=== PATIENT | male | born 1990 | race African-American/Black ===

== ENCOUNTER 2024-03-22 08:47 | Emergency (ER) | payer MEDICAID | END 2024-03-22 10:33 | disposition home or self-care (01) | LOC: MW.ED 08:47 | DX: J02.0 Streptococcal pharyngitis (principal); Z88.0 Allergy status to penicillin | CPT/HCPCS: 87651-QW; 99282; 99283 ==

== ENCOUNTER 2024-04-29 13:26 | Emergency (ER) | payer MEDICAID ==
[2024-04-29] MEDS: methylPREDNISolone Sodium Succinate 125 MG/2 ML SDV IVPUSH STA (14:23)
[2024-04-29] MEDS: Sodium Chloride 0.9% 10 ML Syringe FLUSH PRN (14:24)
[2024-04-29] MEDS: Sodium Chloride 0.9% 2.5 ML Syringe FLUSH PRN (14:24)
[2024-04-29] MEDS: Albuterol/Ipratropium 3.0-0.5 MG/3 ML Neb Soln NEB STA (14:28)
[2024-04-29] MEDS: Albuterol 0.083% 2.5 MG/3 ML Neb Soln NEB STA (14:37)
[2024-04-29 14:38] LABS: BASOPHILS ABSOLUTE AUTO 0.08 K/uL (0.00-0.20); BASOPHILS PERCENT AUTO 0.9 % (0.0-1.0); EOSINOPHILS ABSOLUTE AUTO 0.77 K/uL (0.00-0.45); EOSINOPHILS PERCENT AUTO 8.8 % (0.0-6.0); HEMATOCRIT 47.1 % (42.0-52.0); HEMOGLOBIN 15.6 g/dL (14.0-18.0); IMMATURE GRAN ABSOLUTE AUTO 0.03 K/uL (0.00-0.05); IMMATURE GRAN PERCENT AUTO 0.3 % (0.0-0.4); LYMPHOCYTES ABSOLUTE AUTO 3.26 K/uL (1.00-4.80); LYMPHOCYTES PERCENT AUTO 37.4 % (24.0-44.0); MEAN CORPUSCULAR HEMOGLOBIN 27.7 pg (28.0-32.0); MEAN CORPUSCULAR HGB CONC 33.1 g/dL (32.0-36.0); MEAN CORPUSCULAR VOLUME 83.5 fL (83.0-99.0); MEAN PLATELET VOLUME 8.4 fL (9.4-12.4); MONOCYTES ABSOLUTE AUTO 1.07 K/uL (0.00-0.80); MONOCYTES PERCENT AUTO 12.3 % (0.0-8.0); NEUTROPHILS PERCENT AUTO 40.3 % (41.0-71.0); PLATELET COUNT,PLT 307 K/uL (150-400); RED BLOOD CELL COUNT 5.64 M/uL (4.52-5.90); WHITE BLOOD CELL COUNT,WBC 8.71 K/uL (3.9-11.3)
[2024-04-29 15:17] LABS: ALBUMIN 3.4 g/dL (3.4-5.0); BILIRUBIN TOTAL 0.3 mg/dL (0.2-1.0); CALCIUM 8.8 mg/dL (8.5-10.1); CARBON DIOXIDE,CO2 28.5 mmol/L (21.0-32.0); EST CRCL DRUG DOSING (CG) 114.24 mL/min; POTASSIUM,K 4.1 mmol/L (3.5-5.1); PROTEIN TOTAL,TP 6.8 g/dL (6.4-8.2)
[2024-04-29 15:22] LABS: CORONAVIRUS COVID-19 NAA NEGATIVE (NEGATIVE); INFLUENZA A NAA NEGATIVE (NEGATIVE); INFLUENZA B NAA NEGATIVE (NEGATIVE); RESPIRATORY SYNCYTIAL VIR NAA NEGATIVE (NEGATIVE)
== END 2024-04-29 16:06 | disposition home or self-care (01) ==
LOC: MW.ED 13:26
DX: J40 Bronchitis, not specified as acute or chronic (principal); Z88.0 Allergy status to penicillin; Z79.899 Other long term (current) drug therapy; Z75.8 Other problems related to medical facilities and other health care
CPT/HCPCS: 0241U; 36415; 71045; 80053; 83690; 84484; 85025; 93005; 94640; 96374; 99285; J2919; J3490; 93010; 99284; J7620-GY